=== PATIENT | female | born 1985 ===

== ENCOUNTER → 2024-04-28 | Outpatient (CLI) | payer OTHER ==
[2024-04-29 12:36] LABS: Bacterial Vaginosis PCR Negative (NEGATIVE); Candida glabrata-krusei, PCR NOT DETECTED (NOT DETECT)
[2024-04-29 12:37] LABS: Candida Group, PCR DETECTED (NOT DETECT)
== END ==
LOC: LAB 18:14 → LAB SHORT 18:14
PROVIDERS: Obstetrics & Gynecology
DX: N89.8 Other specified noninflammatory disorders of vagina (principal)
CPT/HCPCS: 87481; 87661; 87801